=== PATIENT | female | born 1970 | race Hispanic/Latino ===

== ENCOUNTER 2022-01-22 19:30 | Outpatient (CLI) | payer BC | END 2022-01-22 19:31 | disposition home or self-care (01) | LOC: SLEEPLAB 19:30 | PROVIDERS: ATTEND Psychiatry & Neurology Neurology | DX: G47.33 Obstructive sleep apnea (adult) (pediatric) (principal); R06.83 Snoring; G47.10 Hypersomnia, unspecified; G47.00 Insomnia, unspecified; R51.9 Headache, unspecified; M79.7 Fibromyalgia | CPT/HCPCS: 95810 ==

== ENCOUNTER → 2022-03-13 | Outpatient (CLI) | payer BC | LOC: SLEEPLAB 17:00 | PROVIDERS: ATTEND Psychiatry & Neurology Neurology | DX: G47.33 Obstructive sleep apnea (adult) (pediatric) (principal); R51.9 Headache, unspecified | CPT/HCPCS: 95811 ==